=== PATIENT | female | born 1995 | race Caucasian/White ===

== ENCOUNTER 2018-09-17 20:49 | Emergency (ER) | payer SELFPAY ==
[2018-09-17 20:50] VITALS: BP 103/73; PULSE 97; RESP 16; TEMP 36.7; O2SAT 98; BMI 18.6
[2018-09-17 21:04] VITALS: PULSE 76; RESP 14; O2SAT 100
--- NOTE | 2018-09-17 21:15 | US_ITS ---
STUDY: FIRST TRIMESTER OBSTETRICAL ULTRASOUND REASON FOR EXAM: Female, 23 years old. Pelvic pain LMP: 07/20/2018 TECHNIQUE: Transvaginal probe was used TECHNICAL QUALITY: Adequate. PRIOR ULTRASOUND: None. FINDINGS: The study shows a gravid uterus measuring 8.9 x 5.4 x 4.4 cm. Within the endometrial canal is a gestational sac with good decidual reaction around it. A yolk sac measuring 3.3 mm is identified and there is an embryonic pole with with a heart rate of 124 bpm and a crown-rump length of 7.4 mm compatible with 6 weeks 5 days +/- 5 days and an expected date of delivery of 05/06/2019. There is a small subchorionic bleed measuring 4 x 10 x 9 mm. Both ovaries are visualized and they both demonstrate normal Doppler flow. The right ovary measures 3.4 x 2.4 x 1.8 cm and the left 2.8 x 1.8 x 1.7 cm. US/Transvaginal w/Preg US IMPRESSION: An early intrauterine at 6 weeks 5 days +/- 5 days with an expected date of delivery of 05/14/2019. Estimated date using the LMP is also 05/06/2019 Electronically Signed: Willy Pulliam MD at 1:11 EST Tel , Service support ,
--- NOTE | 2018-09-17 22:18 | ED.VISSUMM ---
- ER Visit Summary Date of Service: 09/17/18 Chief Complaint: Pelvic pain and abdominal pain History of Present Illness: The patient is a 23 F who found out she was via a home test about 3 weeks ago presents with epigastric and pelvic pain. She has no fever or chills no back pain no dysuria no chest pain or shortness of breath. She is able to eat. No fever or chills. This is her first and she has no vaginal discharge or vaginal bleeding. She has not seen an SHELL REPRINT OPERATOR doctor yet however she is taking vitamins. Physical Examination: Not appear in acute distress. Moist mucous membranes, no obvious facial deformity No C-spine tenderness supple neck. Regular rate and rhythm without any obvious murmurs Clear lungs bilaterally speaking in full sentences without any obvious respiratory distress Abdomen soft with slight epigastric tenderness, there is also slight suprapubic pain. exam was deferred Moves all extremities without any difficulty or pain. Skin does not show any obvious rashes or lesions, no trauma. Alert oriented ?3 with no gross focal deficit Emergency Department Course and Treatment: Patient is found to have a urinary tract infection, per her she is also constipated I will treat her urinary tract infection and culture, I will give her some MiraLAX for home. Pending a unremarkable ultrasound which is ordered patient will likely be discharged home. Impression: UTI Constipation This note was generated with [employer] dictation software. It may contain incorrect words, spelling, and punctuation that were not noted in review of the chart prior to signing ED Disposition - Plan for ED Patient: Disposition: Home or Assisted Living Instructions: ED Abdominal Pain Unkn Cause, Care for a Healthy Baby Prescriptions: Polyethylene Glycol 3350 [Miralax] 17 gm PO DAILY #5 packet Cephalexin [Keflex] 500 mg PO 4X/DAY #28 cap Referrals: Nolan Merchant MD [STAFF PHYSICIAN] - 3-5 Days
[2018-09-17 22:19] LABS: Mucous, Urine 0 SEEN /hpf (<or=2+); Red Blood Cells-Urine 0 SEEN /hpf (0-5)
--- NOTE | 2018-09-17 22:21 | ED.DCSUM_ITS ---
- ER Visit Summary Date of Service: 09/17/18 Chief Complaint: Pelvic pain and abdominal pain History of Present Illness: The patient is a 23 F who found out she was via a home test about 3 weeks ago presents with epigastric and pelvic pain. She has no fever or chills no back pain no dysuria no chest pain or shortness of breath. She is able to eat. No fever or chills. This is her first and she has no vaginal discharge or vaginal bleeding. She has not seen an REFINERY OPERATOR L[employer] RECOVERY doctor yet however she is taking vitamins. Physical Examination: Not appear in acute distress. Moist mucous membranes, no obvious facial deformity No C-spine tenderness supple neck. Regular rate and rhythm without any obvious murmurs Clear lungs bilaterally speaking in full sentences without any obvious respiratory distress Abdomen soft with slight epigastric tenderness, there is also slight suprapubic pain. exam was deferred Moves all extremities without any difficulty or pain. Skin does not show any obvious rashes or lesions, no trauma. Alert oriented ?3 with no gross focal deficit Emergency Department Course and Treatment: Patient is found to have a urinary tract infection, per her she is also consti pated I will treat her urinary tract infection and culture, I will give her some MiraLAX for home. Pending a unremarkable ultrasound which is ordered patient will likely be discharged home. Impression: UTI Constipation This note was generated with [employer] dictation software. It may contain incorrect words, spelling, and punctuation that were not noted in review of the chart prior to signing ED Disposition - Plan for ED Patient: Disposition: Home or Assisted Living Instructions: ED Abdominal Pain Unkn Cause, Care for a Healthy Baby Prescriptions: Polyethylene Glycol 3350 [Miralax] 17 gm PO DAILY #5 packet Cephalexin [Keflex] 500 mg PO 4X/DAY #28 cap Referrals: Nolan Merchant MD [STAFF PHYSICIAN] - 3-5 Days
[2018-09-17 22:32] LABS: hCG Titer Quant., Serum 77585 mIU/mL (<9 non-preg)
[2018-09-17 22:34] LABS: Color, Urine Yellow (Yellow); Glucose, Dipstick Normal (Normal); Ketone-Dipstick Negative (Negative); Leukocyte Esterase-Dipstick 500 /ul (Negative); Nitrite-Dipstick Negative (Negative); Occult Blood-Urine Negative /ul (Negative); Protein-Dipstick Negative (Negative); Urine Bilirubin Dipstick Negative (Negative); Urine Clarity Sl. Cloudy (Clear); Urine Urobilinogen Normal (Normal)
[2018-09-17 22:38] LABS: Bacteria RARE /hpf (None Seen); Squamous Epithelial Cells - UA 0-5 SEEN /hpf (5-10); White Blood Cells 0-5 SEEN /hpf (0-5)
[2018-09-17 23:33] VITALS: BP 96/65; PULSE 61; RESP 17; O2SAT 99
[2018-09-18 01:19] VITALS: RESP 16
== END 2018-09-18 01:19 | disposition home or self-care (01) ==
PROVIDERS: Emergency Provider Emergency Medicine
DX: O23.40 Unspecified infection of urinary tract in pregnancy, unspecified trimester (principal); K59.00 Constipation, unspecified; Z3A.00 Weeks of gestation of pregnancy not specified
CPT/HCPCS: 76817; 81001; 84702; 99282; J7030; A4216

== ENCOUNTER → 2018-10-06 17:00 | Outpatient (CLI) | payer SELFPAY ==
[2018-09-17 20:50] VITALS: BMI 18.6
[2018-10-06 19:31] LABS: Chlamydia Trachomatis by PCR Negative (Negative); Neisserai gonorrhoeae by PCR Negative (Negative); Probe Check PASS; Sample Adequacy Control PASS; Specimen Processing Control PASS
[2018-10-11 17:42] LABS: HPV Reflexed? NOT INDICATED
== END ==
PROVIDERS: Visit Provider Obstetrics & Gynecology
DX: Z12.4 Encounter for screening for malignant neoplasm of cervix (principal); Z11.3 Encounter for screening for infections with a predominantly sexual mode of transmission
CPT/HCPCS: 87491; 87591; 88175; G0145

== ENCOUNTER 2019-05-13 18:55 | Inpatient (IN) | payer OTHER, SELFPAY ==
[2019-05-13] MEDS: Lactated Ringers 1,000 ML 50 ML IV (19:38)
[2019-05-13 19:44] VITALS: BMI 25.2
[2019-05-13 19:57] LABS: Absolute Lymphocyte Count 1.62 X10^3/uL (0.83-4.51); Absolute Neutrophil Count 6.7 X10^3/uL (2.0-7.7); Basophil# 0.04 X10^3/uL; Basophil% 0.4 % (0-1); Eosinophils% 1.1 % (0-5); Hematocrit 32.3 % (37-47); Lymphocyte # 1.62 X10^3/ul (4.0); Lymphocyte % 17.9 % (19-41); Mean Corpuscular Hgb 28.1 pg (27.0-32.0); Mean Corpuscular Volume 90.7 fL (81-99); Mean Platelet Vol. 11.4 fl (6.2-12.0); Monocyte# 0.58 X10^3/uL; Monocyte% 6.4 % (0-10); NRBC Flagged by Analyzer 0 % (0-5); Neutrophil # 6.68 X10^3/uL (2.7-7.7); Neutrophil % 73.8 % (47-70); Platelet Count 209 K/mm3 (150-450); RBC Distribution Width CV 15.5 % (11.6-14.6); RBC Distribution Width SD 50.7 fl (35.1-43.9); Red Blood Count 3.56 M/mm3 (4.2-5.4); White Blood Count 9.1 K/mm3 (4.4-11.0)
[2019-05-13] MEDS: Oxytocin 30 units/NS 500 ml 30 UNITS/500 ML IV.SOLN IV (22:25)
--- NOTE | 2019-05-13 22:26 | HP.PCM_ITS ---
History and Physical Date of Admission: 05/13/19 Date: 05/13/2019 Name: EVA LAGUERRE Age: 23 Date of : 1995 HISTORY OF PRESENT ILLNESS: Eva Weber is a 23 year old female 1 Para 0000, at 41w0d gestation by 11w5d US who presents for: Post Dates IOL Her has been complicated by self-reported high stress levels, anemia, and frequent c/o constipation. She has missed a significant number of visits, and has not taken childbirth education or classes. She plans to breastfeed. She has asked many questions during her visits that demonstrate that this is a welcome about which she and her spouse are both excited, but also a need for education and reassurance as she proceeds through the end of and labor, and throughout and early care. OB PROBLEM LIST: ANEMIC Ferrous sulfate 325 mg po daily CANNOT swallow pills Will not swallow pills FOB has a 4 year old daughter FOB's mother has Muscular Dystrophy Hx of anxiety, no past treatment MULTIPLE MISSED APPTS. 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 CONSULT IN HOSPITAL MSAFP and CF testing declined Pt has 3 uncles with Autism Varicella IgG drawn with labs IMMUNE to chickenpox MEDICATIONS HISTORY: Vitamin 27 mg iron-0.8 mg tablet Protonix 40 mg tablet,delayed release, one tab PO daily, 30 Colace 60 mg capsule, One pill by mouth twice a day, 30 REVIEW OF SYSTEMS: GENERAL - Denies fever, or chills SKIN - Denies skin changes EYES - Denies visual changes EARS - Denies difficulty hearing NOSE - Denies nasal congestion or bleeding MOUTH - Denies sore throat or difficulty swallowing NECK - Denies pain or swelling RESPIRATORY - Denies shortness of breath or wheezing CARDIOVASCULAR - Denies palpitations or chest pain GASTROINTESTINAL - Denies nausea, vomiting, diarrhea; frequently c/constipation, none at this time GENITOURINARY - Denies dysuria, frequency of urination, incontinence of urine MUSCULOSKELETAL - Denies joint or muscle pain NEUROLOGICAL - Denies localized numbness or weakness PSYCHIATRIC - Denies depression or anxiety ENDOCRINE - Denies heat or cold intolerance, weight loss or gain HEMATO-IMMUNOLOGIC - Denies excesive bleeding with cuts PAST HISTORY: Breast/Ovarian/Colon Cancers - Denies Illnesses - asthma Accidents - None History of Abnormal PAPS - Never Hospitalizations - None SURGICAL HISTORY: 1. wisdom teeth MENSTRUAL HISTORY: Amount/Duration - 4 days, Regularity - Regular, Frequency - 28 days, LMP - 07/30/18 PAST PREGNANCIES: Total Pregnancies - 1; Full Term Pregnancies - 0; Premature - 0; Abortions, Induced - 0; Abortions, Spontaneous - 0; Ectopics - 0; Multiple Births - 0; Living Children - 0 SOCIAL HISTORY: Alcohol Use - denies drinking Smoking - denies smoking Diet - no special diet Lifestyle - high stress lifestyle Exercise - active Seat Belt Use - always Employer - [employer] Illicit Drug Use - denies use of street drugs Sexual Activity - ACTIVE ONE PARTNER Spouse-Sig Other Name - Randy Control - PHYSICAL EXAMINATION CONSTITUTIONAL - NAD, well nourished, and well developed SKIN - No rash, lesions, or ulcers HEENT - Normocephalic, PERRLA, EOMI NECK - No nodes, no nuchal rigidity and thyroid normal size and texture LYMPH NODES - Palpation of lymph nodes in neck and groins within normal limits LUNGS - CTA x2 without wheezes, crackles or rales CARDIAC - Regular rate and rhythm without rubs, murmurs, or gallops BREAST - deferred ABDOMEN - Without hepatosplenomegaly, distention, masses, rebound, or guarding; normal bowel sounds; no hernias EXTREMITIES - No edema or calf tenderness NEUROLOGICAL - Cranial nerves II-XII grossly intact PSYCHIATRIC - A and O to time, place, person, mood and affect DETAILED PELVIC EXAM External Genitial Vagina - non-tender without lesions Urethra/Urethral Meatus - non-tender Bladder - non-tender Vagina - vaginal lopez are pink and moist without loss of rugae and no evidence of atropy Cervix - without cervical motion tenderness and has normal size and features without evident lesions Uterus - Gravid, term gestation Adnexa - clear without massess or tenderness Pap - N/A IOL ADMISSION DETAILS FHTS: 125bpm, moderate variability with accels, no decels UCc: None VE: 1/80/-2, SOFT, MID POSITION, vertex presentation verified by bedside ultrasound ASSESSMENT: IUP @ 41w0d by 11w5d US Post Dates GBS negative Anema Cat 1 FHTs Not in labor Potential for PPD r/t anxiety and high stress levels PLAN: POC discussed with patient and spouse, all questions answered, verbal consent obtained to proceed with IOL as agreed via written consent Continuous EFM Arom for moderate amnout clear fluid IUPC Pitocin, titrate to achieve adequate labor May use FSE if needed Encourage movement to promote labor May have IV pain medication, Nitrous upon request May have epidural when labor is becoming active upon request Clear liquid diet Close surveillance Social work consult after delivery Anticipate vaginal delivery
[2019-05-13] MEDS: 0.9% Saline Lock 10 ML Syringe IV (22:35)
--- NOTE | 2019-05-13 23:08 | PCM.PN.OB ---
Subjective: Uncomfortable with contractions; spouse bedside and supportive Objective: FHTs: 125bpm baseline, moderate variability, with accels, no decels UCs: Q 32-4 VE: Deferred Pitocin: - Physical Exam General: Alert, Oriented x3, Cooperative, No apparent distress Neurological: Cranial nerves II-XII grossly intact Psych/Mental Status: Normal Affect, Appropriate, Alert and oriented to time, place, person, mood and affect Weight: 156 lb Body Mass Index (BMI) 25.2 Laboratory Tests Past 24 Hrs 05/13/19 05/13/19 19:38 19:38 WBC 9.1 RBC 3.56 L Hgb 10.0 L Hct 32.3 L MCV 90.7 MCH 28.1 MCHC 31.0 L RDW Std Deviation 50.7 H RDW Coeff of Rose 15.5 H Plt Count 209 MPV 11.4 Immature Gran % (Auto) 0.400 Neut % (Auto) 73.8 H Lymph % (Auto) 17.9 L [place] % (Auto) 6.4 Eos % (Auto) 1.1 Baso % (Auto) 0.4 Absolute Neuts (auto) 6.7 Absolute Lymphs (auto) 1.62 Nucleated RBC % 0 Blood Type B POSITIVE Antibody Screen NEGATIVE Medical Necessity - Tobacco Use Smoking Status: Former smoker Assessment/Plan Assessment: IUP @ 41w0d by 11w5d US Post Dates GBS negative Anema Cat 1 FHTs Plan: Continuous EFM Titrate pitocin to achieve adequate labor Comfort measures, pain control as needed/requested Reassurance provided, coaching, visualizations taught, spouse to reinforce, patient responded well Anticipate vaginal delivery
[2019-05-14] VITALS (7 sets, daily range): BP systolic 92–96; BP diastolic 52–56; PULSE 86–91; RESP 16–18; TEMP 36.2–39.6; O2SAT 97
[2019-05-14] MEDS: Lactated Ringers 500 ML 999 ML IV ×3 (00:25→03:13)
[2019-05-14] MEDS: fentaNYL-bupivacaine (epidural) 100 ML BAG EPIDURAL ×2 (02:16→06:14)
[2019-05-14] MEDS: Lactated Ringers 1,000 ML 200 ML IV ×2 (04:22→09:10)
--- NOTE | 2019-05-14 06:48 | PN.OBGYN_ITS ---
Subjective: Pushing with contractions, unable to feel contractions with epidural, coping well; spouse bedside an supportive Objective: Pushing with slow progress x one hour, now receiving straight cath FHTs: 140 baseline, moderate variability, variables with contractins UCs: Q 2-3 minutes Pitocin: 6 mu VE: 10/100/0 - Physical Exam General: Alert, Oriented x3, Cooperative Neurological: Cranial nerves II-XII grossly intact Psych/Mental Status: Normal Affect, Appropriate, Alert and oriented to time, place, person, mood and affect Weight: 156 lb Body Mass Index (BMI) 25.2 Intake and Output for Last 24 Hours 05/12/19 05/13/19 05/14/19 23:59 23:59 23:59 Intake Total 2.27 / 2.27 2628.83 / 2628.83 Output Total 750 / 750 Balance 2.27 / 2.27 1878.83 / 1878.83 Laboratory Tests Past 24 Hrs 05/13/19 05/13/19 19:38 19:38 WBC 9.1 RBC 3.56 L Hgb 10.0 L Hct 32.3 L MCV 90.7 MCH 28.1 MCHC 31.0 L RDW Std Deviation 50.7 H RDW Coeff of Rose 15.5 H Plt Count 209 MPV 11.4 Immature Gran % (Auto) 0.400 Neut % (Auto) 73.8 H Lymph % (Auto) 17.9 L [place] % (Auto) 6.4 Eos % (Auto) 1.1 Baso % (Auto) 0.4 Absolute Neuts (auto) 6.7 Absolute Lymphs (auto) 1.62 Nucleated RBC % 0 Blood Type B POSITIVE Antibody Screen NEGATIVE Medical Necessity - Tobacco Use Smoking Status: Former smoker Assessment/Plan Assessment: 2nd stage labor, pushing with slow progress Anemia GBS negativel Category 2 FHTs Adequate contraction pattern Plan: Change position to L side May push every other contraction based on tolerance Close monitoring Anticipate vaginal delivery
[2019-05-14] MEDS: 0.9% Saline Lock 10 ML Syringe IV ×5 (06:49→19:39)
--- NOTE | 2019-05-14 06:55 | PN.OBGYN_ITS ---
Subjective: This is a late entry for 05/14/2019 at 0319 - Telephone update from Anthony Juarez RN Patient is comfortable with epidural Objective: FHTs: 125 baseline, moderate variability with acfcels UCs: Q 2-3 VE: --1 per RN PitocinL 6 mu per RN - Physical Exam Weight: 156 lb Body Mass Index (BMI) 25.2 Intake and Output for Last 24 Hours 05/12/19 05/13/19 05/14/19 23:59 23:59 23:59 Intake Total 2.27 / 2.27 2628.83 / 2628.83 Output Total 750 / 750 Balance 2.27 / 2.27 1878.83 / 1878.83 Laboratory Tests Past 24 Hrs 05/13/19 05/13/19 19:38 19:38 WBC 9.1 RBC 3.56 L Hgb 10.0 L Hct 32.3 L MCV 90.7 MCH 28.1 MCHC 31.0 L RDW Std Deviation 50.7 H RDW Coeff of Rose 15.5 H Plt Count 209 MPV 11.4 Immature Gran % (Auto) 0.400 Neut % (Auto) 73.8 H Lymph % (Auto) 17.9 L [place] % (Auto) 6.4 Eos % (Auto) 1.1 Baso % (Auto) 0.4 Absolute Neuts (auto) 6.7 Absolute Lymphs (auto) 1.62 Nucleated RBC % 0 Blood Type B POSITIVE Antibody Screen NEGATIVE Medical Necessity - Tobacco Use Smoking Status: Former smoker Assessment/Plan Assessment: Active labor GBS negative Anemia Cat 1 FHTs Plan: Titrate pitocin to maintain adequate labor Try test push when complete, if little progress may labor down for one hour Call when ready to push
--- NOTE | 2019-05-14 07:03 | PCM.PN.OB ---
Subjective: This is a late entry for 05/14/2019 0530 - telephone update from RN Patient has labored down for one hour, baby is low, patient is comfortable with epidural Objective: FHTs: 125 baseline, mod variability with accels, early decels UCs: Q 1-3 Pitocin 6 mu per RN VE: c/c/+1 per RN - Physical Exam Weight: 156 lb Body Mass Index (BMI) 25.2 Intake and Output for Last 24 Hours 05/12/19 05/13/19 05/14/19 23:59 23:59 23:59 Intake Total 2.27 / 2.27 2628.83 / 2628.83 Output Total 750 / 750 Balance 2.27 / 2.27 1878.83 / 1878.83 Laboratory Tests Past 24 Hrs 05/13/19 05/13/19 19:38 19:38 WBC 9.1 RBC 3.56 L Hgb 10.0 L Hct 32.3 L MCV 90.7 MCH 28.1 MCHC 31.0 L RDW Std Deviation 50.7 H RDW Coeff of Rose 15.5 H Plt Count 209 MPV 11.4 Immature Gran % (Auto) 0.400 Neut % (Auto) 73.8 H Lymph % (Auto) 17.9 L [place] % (Auto) 6.4 Eos % (Auto) 1.1 Baso % (Auto) 0.4 Absolute Neuts (auto) 6.7 Absolute Lymphs (auto) 1.62 Nucleated RBC % 0 Blood Type B POSITIVE Antibody Screen NEGATIVE Medical Necessity - Tobacco Use Smoking Status: Former smoker Assessment/Plan Assessment: Second stage labor GBS negative Anemia Cat 1 FHTs Plan: Begin pushing Continue pitocin to maintain adequate labor Anticipate vaginal delivery
[2019-05-14] MEDS: Oxytocin 30 units/NS 500 ml 30 UNITS/500 ML IV.SOLN 334 UNITS IV (09:39)
--- NOTE | 2019-05-14 09:39 | PLAC_PTH ---
PATIENT: EVA ROSS LOC: WP U#:[id number] AGE/SX: 23/F ROOM: WP008 RE05/13/[address]: Lu Whittington CNM : 1995 BED: 1 DIS: 05/16/2019 SPEC #: [id number] RECD: 05/14/19 11:23 STATUS: S[place]IL [place] #: [id number] KEL: 05/14/19 09:[address]: Lu Whittington DEPT: SURGICAL PATHOLOGY RECD BY: Shayne Martel ENTERED: 05/16/19 11:32 SP TYPE: PLACENTA OTHR DR: No Primary Care Phys Tissues: Placenta, NOS Procedures: Surgery Specimen Level V HEADER OPERATION: Vaginal delivery PRE-OP DIAGNOSIS: Temp during labor and recovery TISSUE SUBMITTED: Placenta MICROSCOPIC DIAGNOSIS Vazquez placenta (499 gm): Umbilical cord - acute funisitis. Placental membranes - mild acute chorioamnionitis and acute deciduitis. Pigmented macrophages suggestive of meconium staining. Placental disc - focal organizing intraparenchymal hemorrhage, acute vasculitis of superficial placental vessels, mild increased intraparenchymal microcalcifications and mild Eve-Dylan change. AM:ladi 05/17/19 MICROSCOPIC DESCRIPTION Slides are reviewed. GROSS DESCRIPTION SPECIMEN: PLACENTA / CLINICAL INFORMATION: A. Weight: 3.45 kg B. Gestational Age: 41 weeks C. Sex: Female PLACENTAL WEIGHT (POST FIXATION): 499 gm PLACENTAL DIMENSIONS: 18 x 17 x 2.5 cm PLACENTAL SHAPE: Usual ovoid PLACENTAL WEIGHT FOR GESTATIONAL AGE: Within 10-99th percentile MEMBRANES - Present A. Insertion: Marginal B. Site of rupture from edge: At edge of placental disc C. Color of membrane: Whalen-mendoza D. Abnormalities: None UMBILICAL CORD - Present A. Color: Whalen-mendoza B. Insertion: Eccentric C. Length: 30 cm D. Diameter: 1.5 cm E. Number of vessels: Three F. Abnormalities: None PLACENTAL DISC - Present A. Color of surface: Whalen-mendoza B. surface abnormalities: None C. Maternal cotyledons: Intact with minimal tears D. Attached retro placental clot: No clot E. Cut surface: Dark red and spongy F. Lesions: None G. Separate clot: Absent SECTIONS SUBMITTED: 1. Umbilical cord ( end inked) 2. Membrane roll 3. Placental disc, and maternal surfaces 4. Placental disc, and maternal surfaces 5. Placental disc, and maternal surfaces AM:ladi 05/16/19 TC:2 CPT: 12665
[2019-05-14] MEDS: Acetaminophen 650 MG/20 ML UDC 1000 MG PO ×2 (10:59→20:05)
--- NOTE | 2019-05-14 11:06 | PCM.OPRPT ---
Vaginal Delivery Maternal Presentation: Elective Induction Method of Induction: Pitocin, Amniotomy Medical Reason for Induction: Post term Amniotic Membrane Rupture Type: Artificial Rupture of Membrane time: 05/13/2019, 2201 Amniotic Fluid Description: Clear Final SAMANTHA: 05/06/19 Final SAMANTHA Source: US <20 weeks Gestational age: 41 Weeks and 1 Days Date of Procedure: 05/14/19 Pre-Operative Diagnosis: IUP @ 41w1d Post-Operative Diagnosis: Surgery/ Procedure Performed: Spontaneous Vaginal Delivery Type of Anesthesia: Epidural Description of Procedure: Pushed with slow progress, delivered a viable female OA to DORA; shoulders followed easily with maternal effort; infant placed on mother's abdomen, dried and stimulated, cord clamped x 2 and cut by CNM per FOB request. APGARS 8/9; Placenta delivered spontaneously, Abdoul mechanism, intact, three vessel cord, central insertion; a foul odor was noted and so was sent to pathology; bilateral second degree vaginal and single first degree perineal lacerations repaired with 3-0 Vicryl and 3-O Vicryl Rapide, good hemostasis obtained; EBL 400ml Instrument, raytec and lap sponge counts correct x 2 with RN tachycardia prior to delivery, maternal fever of 103.3 orally immediately after delivery, 101.4 25 minutes after delivery, 100.7 1 1/2 hours after delivery; after consult with Dr. Merchant, maternal antibiotics will be given; pediatrics is aware of maternal elevated temps. Presentation: Vertex, DORA Placental Delivery Description: Spontaneous Placenta Disposition: Sent to Pathology - Foul odor noted Cord Vessel Description: 3 Vessels Cord Entanglement: None Infant A gender: Female (1 minute): 8 (5 minute): 9 Episiotomy Description: None Laceration: 2nd degree - bilateral second degree vaginal lacaterations and first degree perineal laceration Medications given after delivery: IV Pitocin Complications: None
[2019-05-14 11:21] LABS: Pathology Specimen OB SEE PATHOLOGY REPORT
--- NOTE | 2019-05-14 12:33 | PN.OBGYN_ITS ---
Subjective: Without complaint following delivery Objective: Sitting up in bed, holding ; spouse bedside and supportive tachycardia prior to delivery, maternal fever of 103.3 orally immediately after delivery, 101.4 25 minutes after delivery, 100.7 1 1/2 hours after delivery; Current temp 99.9; all other vitals stable - Physical Exam General: Alert, Oriented x3 HEENT: PERRLA Oral: Moist Mucosa Neck: Supple Lungs: Clear to auscultation, Normal air movement Cardiovascular: Regular rate, Regular Rhythm Abdomen: Bowel Sounds Present Neurological: Cranial nerves II-XII grossly intact, Deep Tendon Reflexes 2+/4 and Symmetrical Psych/Mental Status: Normal Affect, Appropriate, Alert and oriented to time, place, person, mood and affect Weight: 156 lb Body Mass Index (BMI) 25.2 Intake and Output for Last 24 Hours 05/12/19 05/13/19 05/14/19 23:59 23:59 23:59 Intake Total 2.27 / 2.27 3975.26 / 3975.26 Output Total 750 / 750 Balance 2.27 / 2.27 3225.26 / 3225.26 Laboratory Tests Past 24 Hrs 05/13/19 05/13/19 19:38 19:38 WBC 9.1 RBC 3.56 L Hgb 10.0 L Hct 32.3 L MCV 90.7 MCH 28.1 MCHC 31.0 L RDW Std Deviation 50.7 H RDW Coeff of Rose 15.5 H Plt Count 209 MPV 11.4 Immature Gran % (Auto) 0.400 Neut % (Auto) 73.8 H Lymph % (Auto) 17.9 L [place] % (Auto) 6.4 Eos % (Auto) 1.1 Baso % (Auto) 0.4 Absolute Neuts (auto) 6.7 Absolute Lymphs (auto) 1.62 Nucleated RBC % 0 Blood Type B POSITIVE Antibody Screen NEGATIVE Medical Necessity - Tobacco Use Smoking Status: Former smoker Assessment/Plan Assessment: Day of delivery with hx of tachycardia prior to delivery and elevated maternal temperature immediately with foul smelling placenta Stable otherwise GBS negative Anemia Plan: After consultation with Dr. Merchant, IVF antibiotics will be given until patient is afebrile x 24 hours - Amicillin 2 gms IVPB Q 6 hours, and Gentamicin, 5m g/kg, dosing verified with Mauro in pharmacy. Pediatrics aware Continue routine care
[2019-05-14] MEDS: Ibuprofen 100 MG/5 ML UDC 600 MG PO ×2 (14:59→22:01)
[2019-05-14] MEDS: Dibucaine 30 GM Tube 1 APPLIC TOPICAL (15:38)
[2019-05-14 16:40] LABS: Absolute Lymphocyte Count 0.77 X10^3/uL (0.83-4.51); Basophil# 0.06 X10^3/uL; Basophil% 0.4 % (0-1); Eosinophil# 0.01 X10^3/uL; Eosinophils% 0.1 % (0-5); Hematocrit 26.1 % (37-47); Lymphocyte # 0.77 X10^3/ul (4.0); Lymphocyte % 4.6 % (19-41); Mean Corp Hgb Conc 30.7 g/dL (32-36); Mean Corpuscular Hgb 27.7 pg (27.0-32.0); Mean Corpuscular Volume 90.3 fL (81-99); Mean Platelet Vol. 11.2 fl (6.2-12.0); Monocyte# 0.81 X10^3/uL; Monocyte% 4.8 % (0-10); NRBC Flagged by Analyzer 0 % (0-5); Neutrophil # 14.98 X10^3/uL (2.7-7.7); Neutrophil % 89.6 % (47-70); POSITIVE MORPHOLOGY YES; Platelet Count 162 K/mm3 (150-450); RBC Distribution Width CV 15.7 % (11.6-14.6); RBC Distribution Width SD 51.9 fl (35.1-43.9); Red Blood Count 2.89 M/mm3 (4.2-5.4); White Blood Count 16.7 K/mm3 (4.4-11.0)
[2019-05-14 16:46] LABS: Differential Indicated SCAN CRITERIA MET
[2019-05-14 17:02] LABS: Differential Comment SCANNED
--- NOTE | 2019-05-14 18:18 | PN.OBGYN_ITS ---
Subjective: Reclining in bed, holding infant; denies pain, SOB, nausea, lightheadedness or dizziness Objective: AVSS Skin pink, warm & dry Fundus, firm, midline, u/u, lochia small Perineal repair well approximated, mild edema, no bruising or drainage Antibiotics are being administered r/t temp post delivery with malodorous placenta - Physical Exam General: Alert, Oriented x3, Cooperative, No apparent distress HEENT: PERRLA, EOMI Oral: Moist Mucosa Neck: Supple Lungs: Clear to auscultation, Normal air movement Cardiovascular: Regular rate, Regular Rhythm Abdomen: Bowel Sounds Present, Soft, Non Tender, Passing Flatus Extremities: No cyanosis, Capillary Refill Less than 3 Seconds, No Calf Tenderness Musculoskeletal: No Tenderness to Palpation of Joints or Extremities Neurological: Cranial nerves II-XII grossly intact, Deep Tendon Reflexes 2+/4 and Symmetrical Psych/Mental Status: Normal Affect, Appropriate, Alert and oriented to time, place, person, mood and affect Vital Signs Temp Pulse Resp BP 97.9 F 91 18 96/52 L 05/14/19 16:35 05/14/19 16:35 05/14/19 16:35 05/14/19 16:35 Weight: 156 lb Body Mass Index (BMI) 25.2 Intake and Output for Last 24 Hours 05/12/19 05/13/19 05/14/19 23:59 23:59 23:59 Intake Total 2.27 / 2.27 4465.76 / 4465.76 Output Total 750 / 750 Balance 2.27 / 2.27 3715.76 / 3715.76 Laboratory Tests Past 24 Hrs 05/13/19 05/13/19 05/14/19 19:38 19:38 16:20 WBC 9.1 16.7 H RBC 3.56 L 2.89 L Hgb 10.0 L 8.0 L Hct 32.3 L 26.1 L MCV 90.7 90.3 MCH 28.1 27.7 MCHC 31.0 L 30.7 L RDW Std Deviation 50.7 H 51.9 H RDW Coeff of Rose 15.5 H 15.7 H Plt Count 209 162 MPV 11.4 11.2 Immature Gran % (Auto) 0.400 0.500 Neut % (Auto) 73.8 H 89.6 H Lymph % (Auto) 17.9 L 4.6 L [place] % (Auto) 6.4 4.8 Eos % (Auto) 1.1 0.1 Baso % (Auto) 0.4 0.4 Absolute Neuts (auto) 6.7 15.0 H Absolute Lymphs (auto) 1.62 0.77 L Nucleated RBC % 0 0 Differential Comment SCANNED Blood Type B POSITIVE Antibody Screen NEGATIVE Medical Necessity - Tobacco Use Smoking Status: Former smoker Assessment/Plan Assessment: Day of delivery Normal involution Perineum healing well Anemia, asymptomatic Chorioamnionitis vs. endometritis, asymptomatic at this time Plan: Informed Dr. Merchant of CBC results Follow up CBC to be drawn in AM Expectant management
--- NOTE | 2019-05-14 18:45 | NURSING ---
This note related to my day with Alisa and Randy. Randy was very uninvolved during most of the day. He remained on the couch, flipping through his phone while pt. was pushing. He would come to the bedside only upon request to get pt. water to drink and then return to couch. If we asked for him to help support her head, he would do it for a contraction or two, and then sit back down. When I first entered the room, he was sleeping on the couch while pt. was pushing. Alisa was very eager to do everything correctly - listened and tried very hard to do everything that we asked. When KAMI Parra, brought up with her that the head wasn't coming down and she was concerned about possibility of a c/s, this took several ways of explaining for pt. to understand what Aida was talking about. Pt. was able to deliver vaginally, but continued asking random questions throughout labor - i.e. So the head will deliver first? Pt. did well through long repair, holding skin to skin. At one point, pt. exclaimed Is she growing?! When I asked the pt. what she meant by that, she stated OH! I must have only seen part of her ear before. It had looked so small before and now it's so big, but the hat must have moved! Discussed with pt. multiple times through day about what to expect with bleeding (color, amt, duration), cramping, getting up to void, pain. Asked multiple times after discussions questions like Will it hurt when I pee? Will I bleed for a while? Is my stomach supposed to hurt some? Am I going to be sore when I pee? Is my vagina going to be sore? These answers were reinforced several times over. Discussed feeding cues with pt. and then discussed that if started crying after showing cues, that that was a late sign, and that the was angry at this point and may have difficulty latching. Pt. then said how am I going to keep this all straight? Pt. encouraged to call for assistance when infant showing feeding cues. FOB remained out with family or on couch with family through most of this time. At times, laying on couch with blanket over his head. Pt. c/o IV site being sore, offered to move site for pt. as she needed continued IVT for atb's. This took several explanations, and even after it was moved, pt. seemed confused that the old IV could come out. Pt. up to bathroom, but kept stating that she was dizzy, but was able to keep walking to bathroom. Unsure if pt. was dizzy or if this was her way of dealing with pain while trying to go to restroom. Was able to hold self up on toilet, no issues with balance, but did not want to have to support whole weight when walking. Pt. reports I'm so dizzy, I'm so dizzy as soon as she stood to move to / for room change and moving back to bed from w/c. Was unable to void when up to bathroom, and had to be straight-cathed for 1150. Aware that she will have to have huston placed if unable to void later this evening. Pt. needed much assist with , aware of what to do to express colostrum and the idea of needing to put 's mouth onto her nipple to breastfeed, but not really aware of how to accomplish this. When infant's mouth over nipple, asked pt. if she could feel pull or suck and pt's response was I don't know. Pt. remains very inquisitive. FOB more involved after being gone for a while in afternoon.
--- NOTE | 2019-05-14 22:04 | NURSING ---
Pt's bladder scanned for 782mL of urine. Pt. up to bathroom for 10 minutes with no success to urinate.
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
[2019-05-15] VITALS (9 sets, daily range): BP systolic 78–102; BP diastolic 35–63; PULSE 74–108; RESP 16–18; TEMP 36–36.7; O2SAT 98–100
[2019-05-15] MEDS: 0.9% Saline Lock 10 ML Syringe IV ×3 (00:32→14:45)
[2019-05-15] MEDS: Lactated Ringers 500 ML IV (03:35)
[2019-05-15 03:45] LABS: Hematocrit 23.3 % (37-47); Hemoglobin 7.2 g/dL (12.0-15.0); Mean Corp Hgb Conc 30.9 g/dL (32-36); Mean Corpuscular Hgb 28.2 pg (27.0-32.0); Mean Corpuscular Volume 91.4 fL (81-99); Mean Platelet Vol. 11.1 fl (6.2-12.0); Platelet Count 155 K/mm3 (150-450); RBC Distribution Width SD 51.7 fl (35.1-43.9); Red Blood Count 2.55 M/mm3 (4.2-5.4); White Blood Count 14.3 K/mm3 (4.4-11.0)
--- NOTE | 2019-05-15 03:52 | NURSING ---
Replaced patient BP cuff with adult small and retaken. Patient denies dizziness and nausea at this time. Resting in bed with easy respirations. Alert and oriented x3. Patient given cookies and milk. Encouraged to increase fluid intake.
[2019-05-15] MEDS: Lactated Ringers 500 ML 125 ML IV (04:33)
[2019-05-15] MEDS: Acetaminophen 650 MG/20 ML UDC 1000 MG PO ×3 (04:33→22:06)
[2019-05-15] MEDS: Ibuprofen 100 MG/5 ML UDC 600 MG PO ×2 (08:42→21:01)
[2019-05-15] MEDS: oxyCODONE 5 MG Tablet PO ×2 (10:59→17:40)
--- NOTE | 2019-05-15 12:44 | PN.OBGYN_ITS ---
Subjective: Resting with c/o minimal pain, has taken medication to increase comfort for perineal exam; passing flatus, tolerating diet well, infant well. being monitored for cephalhematoma; pt c/o dizziness when ambulating to bathroom with assistance, and being unable to void or have a bowel movement. She reports continuing perineal pain when not medicated; she denies nausea or chest pain. Spouse bedside and supportive Objective: AVSS Breasts filling, nipples atraumatic Fundus firm, midline, u/3, lochia scant Perineum edematous, repair well approximated and hemostatic, no erythema, warmth or drainage noted Vaginal laceration repair healing well per sterile speculum and digital vaginal exam, no hematoma; no rectal injury per digital rectal exam Minimal UOP with huston catheter, drains well with gentle abdominal massage - Physical Exam General: Alert, Oriented x3, Cooperative, No apparent distress HEENT: PERRLA, EOMI Oral: Moist Mucosa Neck: Supple Lungs: Clear to auscultation, Normal air movement Cardiovascular: Regular rate, Regular Rhythm Abdomen: Bowel Sounds Present - Abdomen tympany to percussion, soft, nontender, mild distension noted Extremities: No edema, Capillary Refill Less than 3 Seconds, No Calf Tenderness Musculoskeletal: No Tenderness to Palpation of Joints or Extremities Neurological: Cranial nerves II-XII grossly intact, Deep Tendon Reflexes 2+/4 and Symmetrical Psych/Mental Status: Normal Affect, Appropriate, Alert and oriented to time, place, person, mood and affect Vital Signs Temp Pulse Resp BP Pulse Ox 98.0 F 88 18 95/56 L 99 05/15/19 08:15 05/15/19 08:15 05/15/19 08:15 05/15/19 08:15 05/15/19 03:16 Oxygen Delivery Method Room Air Weight: 156 lb Body Mass Index (BMI) 25.2 Intake and Output for Last 24 Hours 05/13/19 05/14/19 05/15/19 23:59 23:59 23:59 Intake Total 2.27 / 2.27 4565.76 / 4565.76 916.67 / 916.67 Output Total 2700 / 2700 850 / 850 Balance 2.27 / 2.27 1865.76 / 1865.76 66.67 / 66.67 Laboratory Tests Past 24 Hrs 05/14/19 05/15/19 16:20 03:35 WBC 16.7 H 14.3 H RBC 2.89 L 2.55 L Hgb 8.0 L 7.2 L Hct 26.1 L 23.3 L MCV 90.3 91.4 MCH 27.7 28.2 MCHC 30.7 L 30.9 L RDW Std Deviation 51.9 H 51.7 H RDW Coeff of Rose 15.7 H 16.0 H Plt Count 162 155 MPV 11.2 11.1 Immature Gran % (Auto) 0.500 Neut % (Auto) 89.6 H Lymph % (Auto) 4.6 L [place] % (Auto) 4.8 Eos % (Auto) 0.1 Baso % (Auto) 0.4 Absolute Neuts (auto) 15.0 H Absolute Lymphs (auto) 0.77 L Nucleated RBC % 0 Differential Comment SCANNED Medical Necessity - Tobacco Use Smoking Status: Former smoker Assessment/Plan Assessment: PP day #2 Normal uterine involution Perineum healing well, edematous, no hematoma, no rectal injury Anemia, now asymptomatic Chorioamnionitis vs. endometritis, asymptomatic Normal urine output Plan: Thorough, gentle vaginal exam with sterile speculum performed to rule out hematoma Gentle digital rectal exam to rule out rectal injury Liquid Iron supplement TID, continue stool softeners Remove huston catheter for trial of voiding Discharge instructions discussed with patient; she is uncertain as to contraceptive choice, options discussed, will revisit at PP check up Discharge home tomorrow if stable and infant released by pediatrics RTO 6 weeks for PP checkup Dr. Merchant updated
[2019-05-15] MEDS: Ferrous Sulfate 300 MG/5 ML UDC PO ×2 (13:25→17:40)
--- NOTE | 2019-05-15 14:15 | PN.OBGYN_ITS ---
Subjective: This is a late entry for 05/13/2019 at 2225 Objective: Per Yoli RN, pt unable to void,700ml urine in bladder per scan - Physical Exam Vital Signs Temp Pulse Resp BP Pulse Ox 98.0 F 88 18 95/56 L 99 05/15/19 08:15 05/15/19 08:15 05/15/19 08:15 05/15/19 08:15 05/15/19 03:16 Oxygen Delivery Method Room Air Weight: 156 lb Body Mass Index (BMI) 25.2 Intake and Output for Last 24 Hours 05/13/19 05/14/19 05/15/19 23:59 23:59 23:59 Intake Total 2.27 / 2.27 4565.76 / 4565.76 916.67 / 916.67 Output Total 2700 / 2700 850 / 850 Balance 2.27 / 2.27 1865.76 / 1865.76 66.67 / 66.67 Laboratory Tests Past 24 Hrs 05/14/19 05/15/19 16:20 03:35 WBC 16.7 H 14.3 H RBC 2.89 L 2.55 L Hgb 8.0 L 7.2 L Hct 26.1 L 23.3 L MCV 90.3 91.4 MCH 27.7 28.2 MCHC 30.7 L 30.9 L RDW Std Deviation 51.9 H 51.7 H RDW Coeff of Rose 15.7 H 16.0 H Plt Count 162 155 MPV 11.2 11.1 Immature Gran % (Auto) 0.500 Neut % (Auto) 89.6 H Lymph % (Auto) 4.6 L [place] % (Auto) 4.8 Eos % (Auto) 0.1 Baso % (Auto) 0.4 Absolute Neuts (auto) 15.0 H Absolute Lymphs (auto) 0.77 L Nucleated RBC % 0 Differential Comment SCANNED Medical Necessity - Tobacco Use Smoking Status: Former smoker Assessment/Plan Assessment: Urinary Retention Plan: May place huston catheter
--- NOTE | 2019-05-15 14:19 | PCM.PN.OB ---
Subjective: This is a late entry for 05/16/2019 0330 Objective: Per Yoli RN, pt with BPs of 79/35 and 81/42 at midnight, c/o dizziness and nausea; no SOB, pallor, cyanosis or diaphoresis; no mental status changes; HR in 70s, lochia small, fundus firm; no c/o pain; UOP 700mnl via huston - Physical Exam Vital Signs Temp Pulse Resp BP Pulse Ox 98.0 F 88 18 95/56 L 99 05/15/19 08:15 05/15/19 08:15 05/15/19 08:15 05/15/19 08:15 05/15/19 03:16 Oxygen Delivery Method Room Air Weight: 156 lb Body Mass Index (BMI) 25.2 Intake and Output for Last 24 Hours 05/13/19 05/14/19 05/15/19 23:59 23:59 23:59 Intake Total 2.27 / 2.27 4565.76 / 4565.76 916.67 / 916.67 Output Total 2700 / 2700 850 / 850 Balance 2.27 / 2.27 1865.76 / 1865.76 66.67 / 66.67 Laboratory Tests Past 24 Hrs 05/14/19 05/15/19 16:20 03:35 WBC 16.7 H 14.3 H RBC 2.89 L 2.55 L Hgb 8.0 L 7.2 L Hct 26.1 L 23.3 L MCV 90.3 91.4 MCH 27.7 28.2 MCHC 30.7 L 30.9 L RDW Std Deviation 51.9 H 51.7 H RDW Coeff of Rose 15.7 H 16.0 H Plt Count 162 155 MPV 11.2 11.1 Immature Gran % (Auto) 0.500 Neut % (Auto) 89.6 H Lymph % (Auto) 4.6 L [place] % (Auto) 4.8 Eos % (Auto) 0.1 Baso % (Auto) 0.4 Absolute Neuts (auto) 15.0 H Absolute Lymphs (auto) 0.77 L Nucleated RBC % 0 Differential Comment SCANNED Medical Necessity - Tobacco Use Smoking Status: Former smoker Assessment/Plan Assessment: Transient hypotension Normal urine output Normal involution Plan: 500ml bolus LR followed by remainder of liter at 125ml/hr Frequent vital sign checks, call if not improving or worsening Dr. Merchant updated
--- NOTE | 2019-05-15 16:16 | NURSING ---
edema noted to be less than this morning. Ice pack and tucks reapplied after exam by Gideon mcleod
[2019-05-15] MEDS: Senna/Docusate Sodium 1 Tablet PO (17:40)
--- NOTE | 2019-05-15 23:17 | NURSING ---
Patient up to bathroom voided 150 cc clear yellow urine. Patient called out reporting feeling dizzy. Assisted back to bed. Vitals stable now in bed states dizziness resolved. Bleeding appropriate pericare complete.
[2019-05-16] MEDS: 0.9% Saline Lock 10 ML Syringe IV (00:16)
[2019-05-16 00:30] VITALS: BP 103/61; PULSE 104
[2019-05-16 03:00] VITALS: BP 108/67; PULSE 111; RESP 16; TEMP 36
[2019-05-16] MEDS: oxyCODONE 5 MG Tablet PO ×2 (03:31→08:11)
[2019-05-16 04:03] LABS: Hematocrit 24.7 % (37-47); Hemoglobin 7.6 g/dL (12.0-15.0); Mean Corp Hgb Conc 30.8 g/dL (32-36); Mean Corpuscular Volume 91.1 fL (81-99); Mean Platelet Vol. 10.8 fl (6.2-12.0); Platelet Count 207 K/mm3 (150-450); RBC Distribution Width SD 52.8 fl (35.1-43.9); Red Blood Count 2.71 M/mm3 (4.2-5.4); White Blood Count 10.6 K/mm3 (4.4-11.0)
[2019-05-16] MEDS: Acetaminophen 650 MG/20 ML UDC 1000 MG PO (06:30)
[2019-05-16] MEDS: Dibucaine 30 GM Tube 1 APPLIC TOPICAL (08:12)
[2019-05-16] MEDS: Ferrous Sulfate 300 MG/5 ML UDC PO ×2 (08:12→12:40)
[2019-05-16 08:15] VITALS: BP 103/73; PULSE 93; RESP 16; TEMP 36.1
[2019-05-16] MEDS: Ibuprofen 100 MG/5 ML UDC 600 MG PO (12:39)
--- NOTE | 2019-05-16 13:03 | PCM.PN.OB ---
Subjective: Patient without complaints. Tolerating diet well. Positive BM. Occasional dizziness but able to move around the room without difficulty. Denies any vaginal bleeding at present. - Physical Exam Vital Signs Temp Pulse Resp BP Pulse Ox 97 F L 93 16 103/73 100 05/16/19 08:15 05/16/19 08:15 05/16/19 08:15 05/16/19 08:15 05/15/19 23:16 Oxygen Delivery Method Room Air Weight: 156 lb Body Mass Index (BMI) 25.2 Intake and Output for Last 24 Hours 05/14/19 05/15/19 05/16/19 23:59 23:59 23:59 Intake Total 4565.76 / 4565.76 1457.50 / 1457.50 100 / 100 Output Total 2700 / 2700 1600 / 1600 900 / 900 Balance 1865.76 / 1865.76 -142.50 / -142.50 -800 / -800 Laboratory Tests Past 24 Hrs 05/16/19 03:50 WBC 10.6 RBC 2.71 L Hgb 7.6 L Hct 24.7 L MCV 91.1 MCH 28.0 MCHC 30.8 L RDW Std Deviation 52.8 H RDW Coeff of Rose 16.0 H Plt Count 207 MPV 10.8 Hemoglobin stable. Minimal vaginal bleeding noted. Medical Necessity - Tobacco Use Smoking Status: Former smoker Assessment/Plan Doing well day #2 status post spontaneous vaginal delivery. Iron deficiency anemia from hemorrhage. Will discharge to home on oral iron. Follow-up in 6 weeks.
--- NOTE | 2019-05-16 13:08 | DCINST_ITS ---
Discharge Diet: No Restrictions Discharge Activity: May Shower, May Take a Tub Bath May resume sexual activity in: 4-6 weeks Additional Activity Instructions:: Nothing in the vagina for 4-6 weeks. You may return to work/school in 6 weeks. Call your doctor if you observe: Fever of 101 or Higher, Inability to urinate, Inability to have a bowel movement, Using more than one pad per hour Additional Instructions: If you experience any of the following, contact your healthcare provider. * Bleeding that soaks a pad every hour for 2 hours * Unrelieved incision or abdominal pain * Swelling, redness, discharge or bleeding from your incision or episiotomy site * Your incision begins to separate * Problems urinating (including inability to urinate or burning while urinating). * Visual changes * Severe headache * Flu-like symptoms * Pain or redness in one of both of your breasts * Pain, warmth, tenderness or swelling in your legs, especially the calf area * Frequent nausea and vomiting * Symptoms of depression or anxiety If you experience any of the following, call 911 or go to the nearest Emergency Room. * Chest pain * Problems breathing * Seizure activity * Partial or complete paralysis of a body part, slurred speech, weakness or drooping of the face, or a sudden inability to walk or hold your balance Allergies/Adverse Reactions: Allergies No Known Allergies Allergy (Verified 05/13/19 19:57) Medications to take at Discharge Pnv No.103/Folic/Om3s/Fish Oil [ Gummies] 1 each PO DAILY 09/17/18 Psyllium Husk/Aspartame [Metamucil Fiber Singles Packet] 3.4 gm PO 4X/DAY 05/13/19 Ferrous Sulfate Syrup 300 mg PO BID 30 Days #30 udc 05/16/19 The following prescriptions were given: Ferrous Sulfate Syrup 300 mg PO BID 30 Days #30 udc Prescription Printed Please Follow Up With: Lu Whittington, LILLIANA - [phone] When: Call to make an appointment in 6 weeks. Primary Care Physician: Care Physician,No Primary [Primary Care Provider] - Test Results: Test results from this visit will be discussed in further detail at your follow- up appointment, if applicable.
--- NOTE | 2019-05-16 13:09 | PCM.DC.BLA ---
Discharge Summary Date of Admission: 05/13/19 Date of Discharge: 05/16/19 Summary: Admission diagnosis: Intrauterine with Postdatism Discharge diagnosis: Intrauterine with Postdatism, Chorioamnionitis, Hemorrhage, Blood Loss Anemia Procedure: Spontaneous Vaginal Delivery HPI: Uneventful care. PE: Unremarkable. Hospital Course: The patient is a 23 year old G 1 P 0 who presented to and D at 41 weeks gestation. She subsequently had a spontaneous vaginal delivery. Postoperatively she did well except for developing a fever of 102+ on the day delivery for which IV antibiotics were started. Patient became afebrile almost immediately after delivery and antibiotics were stopped on day #1. Patient also had problems with heavy bleeding just after delivery and blood counts were followed with hemoglobin stabilizing at 7.6. She had minimal symptoms from this anemia. On postoperative day #2 it was felt she was ready for discharge. Homegoing Instruction: She was instructed not to drive for several days not to put anything in the vagina for 4 weeks and to call the office for an appointment in 6 weeks. Discharge Medications: She was instructed to continue her vitamins and iron at home - Physical Exam Vital Signs Temp Pulse Resp BP Pulse Ox 97 F L 93 16 103/73 100 05/16/19 08:15 05/16/19 08:15 05/16/19 08:15 05/16/19 08:15 05/15/19 23:16 Oxygen Delivery Method Room Air Weight: 156 lb Body Mass Index (BMI) 25.2 Intake and Output for Last 24 Hours 05/14/19 05/15/19 05/16/19 23:59 23:59 23:59 Intake Total 4565.76 / 4565.76 1457.50 / 1457.50 100 / 100 Output Total 2700 / 2700 1600 / 1600 900 / 900 Balance 1865.76 / 1865.76 -142.50 / -142.50 -800 / -800 Laboratory Tests Past 24 Hrs 05/16/19 03:50 WBC 10.6 RBC 2.71 L Hgb 7.6 L Hct 24.7 L MCV 91.1 MCH 28.0 MCHC 30.8 L RDW Std Deviation 52.8 H RDW Coeff of Rose 16.0 H Plt Count 207 MPV 10.8
[2019-05-16 15:10] VITALS: BP 103/64; PULSE 96; RESP 14; TEMP 36.1
== END 2019-05-16 18:35 | disposition home or self-care (01) | DRG 806 ==
PROVIDERS: Obstetrics & Gynecology; Admitting Provider Advanced Practice Midwife; Referring Provider Advanced Practice Midwife; Visit Provider Advanced Practice Midwife
DX: O48.0 Post-term pregnancy (principal); O75.2 Pyrexia during labor, not elsewhere classified; Z37.0 Single live birth; O76 Abnormality in fetal heart rate and rhythm complicating labor and delivery; O70.1 Second degree perineal laceration during delivery; D50.0 Iron deficiency anemia secondary to blood loss (chronic); O90.81 Anemia of the puerperium; Z3A.41 41 weeks gestation of pregnancy
CPT/HCPCS: 59025; 59050; 85025; 85027; 86850; 86900; 86901; 88307; 99218; J7120; A4216; G0378

== ENCOUNTER → 2019-05-19 08:35 | Outpatient (CLI) | payer OTHER, SELFPAY ==
[2019-05-13 19:44] VITALS: BMI 25.2
== END ==
LOC: TELEHEALTH 05-24 10:12
PROVIDERS: Referring Provider Advanced Practice Midwife; Visit Provider Advanced Practice Midwife
DX: Z39.1 Encounter for care and examination of lactating mother (principal)
CPT/HCPCS: 96152